=== PATIENT | male | born 1960 | race Caucasian/White ===

== ENCOUNTER 2020-04-06 08:16 | Outpatient (CLI) | payer OTHER, MEDICARE, SELFPAY ==
[2020-04-06 08:33] LABS: Basophils Absolute Auto 0.1 K/mm3 (0.0-0.1); Eosinophils Absolute Auto 0.2 K/mm3 (0-0.3); Eosinophils Percent Auto 2.8 % (0-4.4); Hematocrit 51.3 % (42.0-52.0); Hemoglobin 17.5 g/dL (14.0-18.0); Immature Granulocyte Absolute 0.03 K/mm3 (0.00-0.031); Immature Granulocyte Percent A 0.3 % (0-0.5); Lymphocytes Absolute Auto 2.46 K/mm3 (0.9-3.2); Lymphocytes Percent Auto 28.6 % (18.3-44.2); Mean Corpuscular HGB Conc 34.1 g/dl (32-36); Mean Corpuscular Volume 90.8 fl (80-100); Mean Platelet Volume 11.1 fl (7.4-10.4); Monocytes Absolute Auto 0.7 K/mm3 (0.1-0.6); Monocytes Percent Auto 8.3 % (2.6-8.5); Neutrophils Absolute Auto 5.1 K/mm3 (1.3-6.7); Platelet Count Result 225 k/mm3 (150-375); Red Blood Count 5.65 M/mm3 (4.6-6.20); Red Cell Distribution Width 13.2 % (11.5-14.5); White Blood Count 8.6 K/mm3 (4.5-10.0)
[2020-04-06 13:38] LABS: Alanine Aminotransferase 32 U/L (4-50); Albumin Level 4.5 g/dL (3.5-5.1); Alkaline Phosphatase 78 U/L (38-126); Aspartate Amino Transferase 29 U/L (17-59); Bilirubin,Total 0.7 mg/dL (0.2-1.3); Blood Urea Nitrogen 8 mg/dL (9-20); Calcium 9.6 mg/dL (8.4-10.2); Carbon Dioxide 23 mmol/L (22-30); Chloride 105 mmol/L (98-107); Estimated Glomerular Filt Rate > 60; Glucose 123 mg/dL (75-110); Potassium 4.5 mmol/L (3.4-5.0); Sodium 137 mmol/L (137-145)
[2020-04-06 14:16] LABS: Carcinoembryonic Antigen 3.7 ng/mL (0.0-3.0)
== END 2020-04-06 08:17 | disposition home or self-care (01) ==
LOC: ANHLAB 08:22
PROVIDERS: PCP Emergency Medicine; Visit Provider Internal Medicine Hematology & Oncology
DX: C18.9 Malignant neoplasm of colon, unspecified (principal)
CPT/HCPCS: 36415; 80053; 82378; 85025

== ENCOUNTER 2020-05-19 11:52 | Outpatient (CLI) | payer OTHER, MEDICARE, SELFPAY ==
--- NOTE | ~2020-05-19 | XR_ITS ---
XR hip BI 2V w AP pelvis DATE: 05/19/2020 12:30 INDICATION: Recent fall. Left hip pain. TECHNIQUE: AP pelvis. Lateral view of right hip. AP and lateral views of left hip COMPARISON: None FINDINGS: No pelvic fracture or bone destruction is evident. The pubic symphysis and sacroiliac joint s are intact. Hip joint spaces are symmetric and well preserved. No fracture or dislocation, avascula r necrosis or bone destruction of either hip is detected. IMPRESSION: No significant abnormality Reviewed, dictated and finalized at location A. IMPRESSION: No significant abnormality
--- NOTE | ~2020-05-19 | XR_ITS ---
XR lumbar spine 2-3V 05/19/2020 12:30 Indication: Low back pain Procedure: 3 views lumbar spine Comparison: No prior studies for comparison. Findings: There is disc narrowing at all lumbar levels. There are ventral osteophytes at L3-4 and L1- 2. No acute fracture or traumatic malalignment. No evidence for spondylolisthesis. Impression: 1: Mild-moderate lumbar spondylosis. Reviewed, dictated and finalized at location B. Impression: 1: Mild-moderate lumbar spondylosis.
== END 2020-05-19 11:53 | disposition home or self-care (01) ==
PROVIDERS: PCP Emergency Medicine; Visit Provider Emergency Medicine
DX: M25.552 Pain in left hip (principal); M47.896 Other spondylosis, lumbar region
CPT/HCPCS: 72100; 73521

== ENCOUNTER → 2020-05-25 07:42 | Outpatient (CLI) | payer OTHER, MEDICARE, SELFPAY ==
--- NOTE | ~2020-05-25 | MR_ITS ---
EXAMINATION: MR lumbar spine wo [facility] EXAM DATE: 05/25/2020 09:21 INDICATION: Low back pain, left-sided radiating to left hip and down leg. TECHNIQUE: Multi-sequential, multiplanar MR images of the lumbar spine were obtained without contrast . Sagittal T1, T2, T2 fat saturation images. Axial T2 weighted images. There is no prior study for comparison. FINDINGS: Some subcutaneous artifact posterior to the L5 vertebral body, correlate with prior surgica l history. There is moderate disc disease at L1-2, L2-3, L5-S1. Mild to moderate disc disease at L4-5 with 3 mm retrolisthesis. The conus medullaris terminates at the L1/2 level and has normal signal in tensity and morphology. There are no suspicious marrow signal abnormalities. Paraspinal soft tissue is unremarkable. Level by level evaluation: T12-L1: There is a mild diffuse disc bulge. Facet arthropathy: Mild. Neural foraminal stenosis: No stenosis. Central canal stenosis: No stenosis. L1-L2: There is a mild to moderate diffuse disc bulge superimposed central extrusion, some migration both superiorly and inferiorly. Facet arthropathy: Mild. Neural foraminal stenosis: Mild bilateral. Central canal stenosis: Mild to moderate. L2-L3: There is a mild to moderate diffuse disc bulge. Facet arthropathy: Mild to moderate. Neural foraminal stenosis: Mild to moderate bilateral. Central canal stenosis: Mild to moderate. L3-L4: There is a mild to moderate diffuse disc bulge, superimposed far left extrusion extending into the neural foramina, causing mass effect on exiting L3 nerve root. Sequence 7 image 17, sequence 3 image 13. Facet arthropathy: Moderate. Neural foraminal stenosis: Mild to moderate left, mild right. Central canal stenosis: Mild to moderate. L4-L5: There is a mild to moderate diffuse disc bulge. Facet arthropathy: Moderate . Ligamentum flavum enlargement. Neural foraminal stenosis: Moderate bilateral. Central canal stenosis: Moderate. L5-S1: There is a mild to moderate diffuse disc bulge. Facet arthropathy: Moderate left, mild right. Neural foraminal stenosis: Moderate left, mild to moderate right. Central canal stenosis: Mild. IMPRESSION: 1. Small L3-4 left central extrusion causing some mass effect on exiting L3 nerve root. 2. Moderate lower lumbar spondylosis. Reviewed, dictated and finalized at location A. IMPRESSION: 1. Small L3-4 left central extrusion causing some mass effect on exiting L3 ne rve root. 2. Moderate lower lumbar spondylosis.
== END ==
PROVIDERS: Visit Provider Nurse Practitioner Family
DX: M47.897 Other spondylosis, lumbosacral region (principal); M51.24 Other intervertebral disc displacement, thoracic region
CPT/HCPCS: 72148

== ENCOUNTER → 2020-07-17 12:44 | Outpatient (CLI) | payer OTHER, MEDICARE, SELFPAY ==
--- NOTE | ~2020-07-17 | CT_ITS ---
EXAMINATION: CT lumbar spine wo con DATE: 07/17/2020 13:07 INDICATION: Low back pain. Lumbar radiculopathy. TECHNIQUE: Computed tomography (CT) of the lumbar spine was performed without intravenous contrast. A utomated exposure control and iterative reconstruction technique were employed. The dose-length produ ct was 987.22 mGy-cm. COMPARISON: Lumbar spine MRI 05/25/2020 FINDINGS: There is 7 degrees levocurvature of lumbar spine. There is mild chronic anterior wedging of T12-L2 vertebral bodies. There is moderately decreased disc height at T12-L1, L1-L2, and L2-L3, mild ly decreased disc height at L3-L4, moderately decreased disc height at L4-L5, and severely decreased disc height at L5-S1. The following disc levels are specifically discussed: T12-L1: The disc is bulging. There is mild bilateral facet joint osteoarthritis. There is mild right neural foraminal stenosis. There is mild central canal stenosis. L1-L2: The disc is bulging with superimposed central extrusion. There is mild bilateral facet joint o steoarthritis. There is mild bilateral neural foraminal stenosis. There is mild central canal stenosi s. L2-L3: The disc is bulging. There is mild bilateral facet joint osteoarthritis. There is mild bilater al neural foraminal stenosis. There is mild central canal stenosis. L3-L4: The disc is bulging with superimposed left foraminal extrusion. There is moderate bilateral fa cet joint osteoarthritis. There is mild bilateral neural foraminal stenosis. There is mild central ca nal stenosis. L4-L5: The disc is bulging. There is severe bilateral facet joint osteoarthritis. There is mild bilat eral neural foraminal stenosis. There is mild central canal stenosis. L5-S1: The disc is bulging. There is moderate right and severe left facet joint osteoarthritis. There is mild right and moderate left neural foraminal stenosis. There is mild central canal stenosis. IMPRESSION: 1. Severe lumbar spondylosis, stable from 05/25/2020. Reviewed, dictated and finalized at location A.
== END ==
PROVIDERS: PCP Emergency Medicine; Visit Provider Orthopaedic Surgery
DX: M54.5 Low back pain (principal); M47.816 Spondylosis without myelopathy or radiculopathy, lumbar region
CPT/HCPCS: 72131

== ENCOUNTER 2021-10-18 10:13 | Emergency (ER) | payer OTHER, MEDICARE, SELFPAY ==
--- NOTE | ~2021-10-18 | XR_ITS ---
EXAMINATION: XR hip RT 2V w AP pelvis DATE: 10/18/2021 12:36 INDICATION: Right hip pain. Fall. TECHNIQUE: An anteroposterior view of the pelvis on 2 radiographs and 2 views of right hip were [place]. COMPARISON: Pelvis and hip radiographs 05/19/2020 FINDINGS: There is levocurvature of lumbar spine. There is severe lower lumbar spondylosis. No fractu re. There is mild osteoarthritis of the hips. IMPRESSION: 1. Mild osteoarthritis of the hips. Reviewed, dictated and finalized at location A. 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
--- NOTE | ~2021-10-18 | XR_ITS ---
EXAMINATION: XR lumbar spine min 4V DATE: 10/18/2021 12:36 INDICATION: Fall. Right-sided hip pain. TECHNIQUE: 5 views of lumbar spine were obtained. COMPARISON: CT lumbar spine 07/17/20 FINDINGS: There is 6 degrees levocurvature of lumbar spine. There is mild chronic anterior wedging of T12 vertebral body. There is mildly decreased disc height from T11-T12 through L2-L3, mildly decreas ed disc height at L4-L5, and severely decreased disc height at L5-S1. There are endplate osteophytes at all levels. There is multilevel facet joint osteoarthritis, severe bilaterally at L4-L5 and on the left at L5-S1. IMPRESSION: 1. Severe lumbar spondylosis. Reviewed, dictated and finalized at location A. GER IN[employer]ET
[2021-10-18 11:16] VITALS: BP 152/87; PULSE 93; RESP 18; TEMP 36.7; O2SAT 98
[2021-10-18] MEDS: methylPREDNISolone SOD SUCC 125 MG VIAL IM (14:39)
[2021-10-18] MEDS: KETOROLAC 30 MG/ML VIAL (*BKC) IM (14:40)
[2021-10-18 14:50] VITALS: BP 132/78; PULSE 78; RESP 18; O2SAT 99
--- NOTE | 2021-10-18 20:40 | ED.FALL ---
HPI - Fall General Chief Complaint: Fall Stated Complaint: Fall/Back, R hip pain Time Seen by Provider: 10/18/21 12:11 Source: patient Mode of arrival: ambulatory Limitations: no limitations History of Present Illness HPI Narrative: Patient is a 61-year-old male with history of prior back surgeries spanning over the past 40 years with chief complaint of low back pain and right hip pain that began on after falling onto his buttocks. Patient reports that it is spinal specialist are at the [facility] however he did not want to travel to the destination. He reports no change in his radiculopathies. He denies loss of bowel or bladder function or saddle paresthesia. Patient reports that he was able to ambulate but ambulates slowly. Patient reports pain increases with rotation and flexion. Patient denies any other areas of pain, head impact, loss of consciousness or any other emergent symptoms. Patient denies taking any chronic back pain medications other than [id number] Tylenol and ibuprofen. Related Data Home Medications Medication Instructions Recorded Confirmed atorvastatin 80 mg tablet See Rx Instructions PO DAILY 05/19/20 10/14/20 tablet empagliflozin 25 mg tablet 25 mg PO DAILY 08/05/20 10/14/20 lidocaine 5 % topical patch 1 patch TOPICAL DAILY PRN 08/05/20 10/14/20 Allergies Allergy/AdvReac Type Severity Reaction Status Date / Time Penicillins Allergy Unknown Difficulty Verified 10/18/21 12:10 Breathing Review of Systems Review of Systems: CONSTITUTIONAL: Denies fever, chills, or sweats. EYES: Denies visual changes, redness, or discharge. ENT: Denies rhinorrhea, congestion, sore throat, or otalgia. CARDIOVASCULAR: Denies chest pain, palpitations, or edema. RESPIRATORY: Denies cough or dyspnea. GASTROINTESTINAL: Denies abdominal pain, nausea, vomiting, or diarrhea. GENITOURINARY: Denies dysuria or hematuria. SKIN: Denies rash or itching. MUSCULOSKELETAL reports right hip and back pain, denies joint pain, or myalgia. NEUROLOGIC: Denies headache, numbness, dizziness, or weakness. PSYCHIATRIC: Denies anxiety or depression. [facility] Past Medical History Medical History (Updated 10/18/21 @ 14:41 by Mel Stewart PA-C) HLD (hyperlipidemia) HTN (hypertension) Screening PSA (prostate specific antigen) Exam Narrative: GENERAL: Well-appearing, well-nourished, and in no acute distress. HEAD: Normocephalic, atraumatic. EYES: PERRLA and EOMI. CHEST: Clear to auscultation. No respiratory distress. No wheezes rales or rhonchi HEART: Regular rate and rhythm. s. BACK: Diffuse lower lumbar tenderness. Do saddle paraesthesias. Patient can ambulate- uses cane at baseline. Straight leg raise test refused. EXTREMITIES: Normal range of motion. No edema. SKIN: Warm, dry, no rash. NEURO: No focal deficits. Alert and oriented x3. PSYCH: Normal mood and affect. Course Vital Signs Vital signs: Vital Signs Temperature 98.0 F 10/18/21 11:16 Pulse Rate 93 10/18/21 11:16 Respiratory Rate 18 10/18/21 11:16 Blood Pressure 152/87 H 10/18/21 11:16 Pulse Oximetry 98 10/18/21 11:16 Temperature 98.0 F 10/18/21 11:16 Pulse Rate 78 10/18/21 14:50 Respiratory Rate 18 10/18/21 14:50 Blood Pressure 132/78 10/18/21 14:50 Pulse Oximetry 99 10/18/21 14:50 MDM - Fall MDM Narrative Medical decision making narrative: Patient is x-rays are negative for acute fracture. Patient had driven himself to the emergency department so he will not be given medications in the ER that will make him drowsy. Patient has been instructed to take [id number] as he has been given a few tablets of [place] for home for breakthrough pain. Patient has been instructed to follow-up his spinal specialist further evaluation and management as he may require MRI or other imaging and testing if his symptoms persist. Patient has been given strict return ER instructions if he develops any neurological deficits or
== END 2021-10-18 14:52 | disposition home or self-care (01) ==
PROVIDERS: Emergency Provider Emergency Medicine; PCP Emergency Medicine
DX: M54.50 Low back pain, unspecified (principal); M25.551 Pain in right hip; E78.5 Hyperlipidemia, unspecified; I10 Essential (primary) hypertension; M47.816 Spondylosis without myelopathy or radiculopathy, lumbar region
CPT/HCPCS: 72110; 73502; 96372; 99284; J1885; J2930